=== PATIENT | female | born 1955 | race Asian ===

== ENCOUNTER 2020-08-07 14:05 | Emergency (ER) | payer OTHER, MEDICAID ==
[~2020-08-07] VITALS: Ht 160 cm; Wt 54.5 kg
[~2020-08-07 14:05] MED LIST: ALBU8HFA IH; APIX5TAB PO; METO25 PO
[2020-08-07 15:01] VITALS: BP 152/85
== END 2020-08-07 15:20 | disposition home or self-care (01) ==
LOC: EMS 14:13
DX: I10 Essential (primary) hypertension (principal)
CPT/HCPCS: 99281; Z7502

== ENCOUNTER → 2020-11-04 | Outpatient (CLI) | payer OTHER, MEDICAID | END | disposition home or self-care (01) | LOC: RADMN 09:29 | PROVIDERS: ATTEND Family Medicine | DX: R06.02 Shortness of breath (principal); I70.0 Atherosclerosis of aorta | CPT/HCPCS: 71045 ==

== ENCOUNTER 2023-11-22 10:12 | Emergency (ER) | payer MEDICARE, MEDICAID ==
[~2023-11-22] VITALS: Ht 157.5 cm; Wt 54.5 kg
[~2023-11-22 10:12] MED LIST changes: +ALBU18HF12 IH; -ALBU8HFA IH
[2023-11-22 10:27] VITALS: TEMP 97.9
[2023-11-22 10:41] LABS: GLUCOMETER DEV NAME(LOC) ER.7; GLUCOSE,POINT OF CARE 102 MG/DL (70-110)
[2023-11-22 10:53] LABS: BASOPHILS % (AUTO) 0.6 % (0.0-2.0); EOSINOPHILS % (AUTO) 2.5 % (1.0-6.0); HEMATOCRIT 37.2 % (36-46); HEMOGLOBIN 12.3 g/dL (12.0-16.0); LYMPHOCYTES # (AUTO) 1.3 K/uL (1.0-4.8); LYMPHOCYTES % (AUTO) 20.8 % (22.0-44.0); MEAN CORPUSCULAR HEMOGLOBIN 28.6 pg (26.0-34.0); MEAN CORPUSCULAR VOLUME 87 fL (80-100); MONOCYTES # (AUTO) 0.4 K/uL (0.1-1.0); MONOCYTES % (AUTO) 7.2 % (2.0-9.0); NEUTROPHILS # (AUTO) 4.3 K/uL (1.8-7.7); NEUTROPHILS % (AUTO) 68.9 % (40.0-70.0); PLATELET COUNT (AUTO) 220 K/uL (150-450); RED BLOOD CELL COUNT(AUTO) 4.29 MIL/uL (4.00-5.20); RED CELL DISTRIBUTION WIDTH 14.1 % (11.5-14.5); WHITE BLOOD COUNT (AUTO) 6.2 K/uL (4.5-11.0)
[2023-11-22 11:03] LABS: ANION GAP 8 mmol/L (8-16); CARBON DIOXIDE 29 mmol/L (22-29); CHLORIDE 99 mmol/L (98-107); CREATININE 0.77 mg/dL (0.60-1.30); GLOMERULAR FILTR. RATE CALC > 60 mL/min (>60); GLUCOSE,RANDOM 124 mg/dL (70-110); POTASSIUM 3.5 mmol/L (3.5-5.1); SODIUM SERUM 136 mmol/L (136-145); UREA NITROGEN, BLOOD 16 mg/dL (7-18)
[2023-11-22 11:11] LABS: TROPONIN I-HIGH SENSITIVITY 12 ng/L (<51)
[2023-11-22] MEDS ORDERED: ATOR20TA65 PO (11:13)
[2023-11-22] MEDS ORDERED: MONT-40 PO (11:13)
[2023-11-22] MEDS ORDERED: SERT-439 PO (11:13)
[2023-11-22] MEDS ORDERED: METF-81 PO (11:13)
[2023-11-22] MEDS ORDERED: LOSA100T59 PO (11:13)
[2023-11-22] MEDS ORDERED: CYCL05OE OU (11:13)
[2023-11-22] MEDS ORDERED: METO-416 PO (11:13)
[2023-11-22] MEDS: ONDANSETRON HCL 4 MG TABLET PO ONE (11:24)
[2023-11-22] MEDS: ACETAMINOPHEN 500 MG TABLET PO ONE (11:24)
[2023-11-22 11:53] VITALS: BP 156/87; PULSE 64; RESP 18
[2023-11-22] MEDS ORDERED: MECL-134 PO (12:53)
[2023-11-22] MEDS: MECLIZINE HCL 25 MG TABLET PO ONE (13:01)
== END 2023-11-22 13:10 | disposition home or self-care (01) ==
LOC: EMS 10:12
DX: F41.9 Anxiety disorder, unspecified (principal); R42 Dizziness and giddiness; I10 Essential (primary) hypertension; E11.9 Type 2 diabetes mellitus without complications; R00.2 Palpitations; J45.909 Unspecified asthma, uncomplicated
CPT/HCPCS: 99284; 80048; 82962; 84484; 85025; 36415; 93005; Q0162